=== PATIENT | male | born 1950 | race African-American/Black ===

== ENCOUNTER 2018-09-29 09:33 | Inpatient (IN) | payer OTHER ==
[2018-09-29] VITALS: BP 119/55
[~2018-09-29] VITALS: Ht 182.9 cm; Wt 93.4 kg
[2018-09-29] MEDS ORDERED: SODIUM CHLORIDE 0.9% 1,000 ML IV ONE (10:09)
[2018-09-29 10:38] LABS: HEMATOCRIT. 26.3 % (42.0-52.0); HEMOGLOBIN. 8.6 g/dL (14.0-18.0); MEAN CORPUSCULAR VOLUME 85.1 fL (80.0-94.0); MEAN PLATELET VOLUME 8.7 fl (7.4-10.4); PLATELET 297 x1000/uL (130-400); RED BLOOD CELL COUNT 3.09 mill/uL (4.7-6.1); RED CELL DISTRIBUTION WIDTH 14.6 % (11.6-14.6)
[2018-09-29 10:39] LABS: CHLORIDE 104 mEq/L (98-107)
[2018-09-29 10:51] LABS: PROTHROMBIN TIME 10.2 sec (9.6-11.0)
[2018-09-29 11:15] LABS: PLATELET ESTIMATE NORMAL
[2018-09-29] MEDS ORDERED: ONDANSETRON HCL 4MG/2ML INJ IV PRN (17:30)
[2018-09-29] MEDS ORDERED: DEXTROSE 50% WATER 50ML SYRINGE IV PRN (17:30)
[2018-09-29] MEDS: ACETAMINOPHEN 325MG TABLET PO PRN (18:50)
[2018-09-29 20:00] VITALS: BP 125/52
[2018-09-29] MEDS ORDERED: ZOLPIDEM TARTRATE 5MG TABLET PO PRN (21:00)
[2018-09-29] MEDS: BLOOD SUGAR DIAGNOSTIC STRIP TEST SCH (21:32)
[2018-09-29] MEDS: INSULIN GLARGINE UD 100 UNITS/ML SYR SUBCUT SCH (22:13)
[2018-09-29] MEDS: INSULIN LISPRO 100 UNITS/ML SUBCUT SCH (22:14)
[2018-09-29] MEDS: SODIUM CHLORIDE 0.9% 1,000 ML IV SCH (22:20)
[2018-09-29 23:31] VITALS: BP 125/52
[2018-09-30] VITALS (9 sets, daily range): BP systolic 83–134; BP diastolic 43–61
[2018-09-30 00:53] LABS: CLARITY URINE CLOUDY (CLEAR); COLOR URINE YELLOW (YELLOW); KETONES URINE 1+ (NEGATIVE); LEUKOCYTE ESTERASE URINE 2+ (NEGATIVE); NITRITE URINE POSITIVE (NEGATIVE); OCCULT BLOOD URINE 2+ (NEGATIVE); PROTEIN URINE 1+ (NEGATIVE); SPECIFIC GRAVITY URINE 1.021 (1.005-1.030); UROBILINOGEN URINE 0.2 E.U./dL (0.2-1.0)
[2018-09-30 01:45] LABS: *BENZODIAZEPINES SCREEN URINE NEGATIVE (NEGATIVE); *COCAINE SCREEN URINE NEGATIVE (NEGATIVE)
[2018-09-30 01:46] LABS: *AMPHETAMINES SCREEN URINE NEGATIVE (NEGATIVE); *BARBITURATES SCREEN URINE NEGATIVE (NEGATIVE); CANNABINOID URINE SCREEN NEGATIVE (NEGATIVE); METHADONE URINE SCREEN NEGATIVE (NEGATIVE); OPIATES URINE SCREEN NEGATIVE (NEGATIVE); PHENCYCLIDINE URINE SCREEN NEGATIVE (NEGATIVE)
[2018-09-30] MEDS: ACETAMINOPHEN 325MG TABLET PO PRN ×3 (02:57→20:25)
[2018-09-30] MEDS ORDERED: PIPERACILLIN/TAZOBACTAM 3.375 G in DEXT 5% WATER 100 ML IV SCH (06:00)
[2018-09-30 06:09] LABS: MEAN CORPUSCULAR HEMOGLOBIN 28.3 pg (28.0-32.0); MEAN CORPUSCULAR VOLUME 84.5 fL (80.0-94.0); MEAN PLATELET VOLUME 8.7 fl (7.4-10.4); PLATELET 273 x1000/uL (130-400); RED BLOOD CELL COUNT 2.84 mill/uL (4.7-6.1); RED CELL DISTRIBUTION WIDTH 14.5 % (11.6-14.6)
[2018-09-30 06:44] LABS: CHLORIDE 108 mEq/L (98-107)
[2018-09-30] MEDS: BLOOD SUGAR DIAGNOSTIC STRIP TEST SCH ×4 (07:06→20:32)
[2018-09-30] MEDS: INSULIN LISPRO 100 UNITS/ML SUBCUT SCH ×4 (09:11→20:31)
[2018-09-30] MEDS ORDERED: PNEUMOCOCCAL 23-VAL P-SAC VAC 0.5 ML IM ONE (12:00)
[2018-09-30] MEDS: DOCUSATE SODIUM 100MG CAPSULE PO SCH ×2 (12:03→18:24)
[2018-09-30] MEDS: SODIUM CHLORIDE 0.9% 1,000 ML IV SCH ×2 (12:03→22:16)
[2018-09-30 12:12] LABS: PLATELET ESTIMATE NORMAL
[2018-09-30] MEDS: INSULIN GLARGINE UD 100 UNITS/ML SYR SUBCUT SCH ×2 (12:55→22:15)
[2018-09-30] MEDS: OMEPRAZOLE 20MG CAPSULE EXTENDED RELEASE PO SCH (13:35)
[2018-09-30] MEDS: FERROUS SULFATE 325MG TABLET PO SCH ×2 (13:36→18:24)
[2018-09-30] MEDS: PIPERACILLIN/TAZOBACTAM 3.375 G in DEXT 5% WATER 100 ML IV SCH ×2 (13:36→18:25)
[2018-09-30] MEDS: FLUDROCORTISONE ACETATE 0.1MG TABLET PO SCH (18:24)
[2018-09-30] MEDS ORDERED: METF-416 PO (20:13)
[2018-09-30] MEDS ORDERED: GABA-529 PO (20:13)
[2018-10-01] VITALS (7 sets, daily range): BP systolic 98–115; BP diastolic 47–60
[2018-10-01] MEDS: PIPERACILLIN/TAZOBACTAM 3.375 G in DEXT 5% WATER 100 ML IV SCH ×4 (00:19→18:26)
[2018-10-01] MEDS: ACETAMINOPHEN 325MG TABLET PO PRN ×2 (04:40→20:50)
[2018-10-01] MEDS: BLOOD SUGAR DIAGNOSTIC STRIP TEST SCH ×3 (06:26→18:16)
[2018-10-01 06:29] LABS: CHLORIDE 108 mEq/L (98-107)
[2018-10-01 06:34] LABS: BASOPHILS % 0.2 % (0.0-2.0); EOSINOPHILS % 0.2 % (0.0-5.0); LYMPHOCYTES % 7.5 % (20.0-50.0); MEAN CORPUSCULAR VOLUME 83.8 fL (80.0-94.0); MEAN PLATELET VOLUME 8.8 fl (7.4-10.4); MONOCYTES % 9.9 % (2.0-8.0); NEUTROPHILS % 82.2 % (40.0-76.0); PLATELET 272 x1000/uL (130-400); RED BLOOD CELL COUNT 2.86 mill/uL (4.7-6.1); RED CELL DISTRIBUTION WIDTH 14.9 % (11.6-14.6)
[2018-10-01] MEDS: OMEPRAZOLE 20MG CAPSULE EXTENDED RELEASE PO SCH (07:09)
[2018-10-01] MEDS: INSULIN LISPRO 100 UNITS/ML SUBCUT SCH ×3 (07:50→17:50)
[2018-10-01] MEDS: FLUDROCORTISONE ACETATE 0.1MG TABLET PO SCH (09:25)
[2018-10-01] MEDS: DOCUSATE SODIUM 100MG CAPSULE PO SCH ×2 (09:25→18:26)
[2018-10-01] MEDS: FERROUS SULFATE 325MG TABLET PO SCH ×3 (09:25→18:26)
[2018-10-01] MEDS: INSULIN GLARGINE UD 100 UNITS/ML SYR SUBCUT SCH (09:41)
[2018-10-01] MEDS: SODIUM CHLORIDE 0.9% 1,000 ML IV SCH (12:00)
[2018-10-01] MEDS ORDERED: LEVO750T46 MT (18:13)
[2018-10-01] MEDS ORDERED: FERR325T23 PO (18:13)
[2018-10-01] MEDS ORDERED: METF-416 MT (18:13)
[2018-10-01] MEDS ORDERED: DOCU-138 PO (18:13)
[2018-10-02 08:11] LABS: HIV SCREEN 4G Non Reactive (Non Reactive)
[2018-10-02] MEDS ORDERED: FAMOTIDINE 20MG TABLET PO SCH (09:00)
== END 2018-10-01 22:25 | disposition home or self-care (01) | DRG 871 ==
LOC: ER 09:33 → 6WST 16:48 → ENRESERV 17:48
PROVIDERS: ADMIT Internal Medicine; ATTEND Internal Medicine
DX: A41.9 Sepsis, unspecified organism (principal); G93.41 Metabolic encephalopathy; N17.0 Acute kidney failure with tubular necrosis; N39.0 Urinary tract infection, site not specified; E44.0 Moderate protein-calorie malnutrition; D64.9 Anemia, unspecified; E11.9 Type 2 diabetes mellitus without complications; I95.1 Orthostatic hypotension; G90.8 Other disorders of autonomic nervous system; K21.9 Gastro-esophageal reflux disease without esophagitis; N28.1 Cyst of kidney, acquired; Z85.46 Personal history of malignant neoplasm of prostate; Z90.79 Acquired absence of other genital organ(s); Z91.81 History of falling; Z68.27 Body mass index [BMI] 27.0-27.9, adult
CPT/HCPCS: 36415; 71045; 76770; 80048; 80305; 81003; 82728; 82962; 83036; 83540; 83550; 83605; 84145; 84443; 84484; 87070; 87077; 87186; 87389; 93005; 93306; 93970; 97162; 97530; 99285; J1815; J2543; J7030; J7060